=== PATIENT | female | born 1955 | race Caucasian/White ===

== ENCOUNTER → 2017-03-20 | Outpatient (CLI) | payer OTHER ==
[~2017-03-20] MED LIST: ENBREL25 MG/0.5 IM; FISHOIL PO; FOLIC ACID1 MG PO; I-CAPS AREDS S1 EACH PO; METHOTREXA1 GM/40 M2 IV; MINOCIN100 MG PO; PREDNISONE 5 MG5 M1 PO; TRAMADOL 50 MG50 MG PO; VITAMINC500 PO
== END ==
LOC: M.WC 01:51
DX: L89.893 Pressure ulcer of other site, stage 3 (principal); M06.9 Rheumatoid arthritis, unspecified; Z96.653 Presence of artificial knee joint, bilateral; Z96.641 Presence of right artificial hip joint

== ENCOUNTER → 2017-03-27 | Outpatient (CLI) | payer OTHER | LOC: M.WC 02:43 | DX: L89.893 Pressure ulcer of other site, stage 3 (principal); M06.9 Rheumatoid arthritis, unspecified; Z96.653 Presence of artificial knee joint, bilateral; Z96.641 Presence of right artificial hip joint ==

== ENCOUNTER → 2017-04-03 | Outpatient (CLI) | payer OTHER | LOC: M.WC 01:27 | DX: L89.893 Pressure ulcer of other site, stage 3 (principal); L03.116 Cellulitis of left lower limb; M06.9 Rheumatoid arthritis, unspecified ==

== ENCOUNTER → 2017-04-10 | Outpatient (CLI) | payer OTHER | LOC: M.WC 01:19 | DX: L89.893 Pressure ulcer of other site, stage 3 (principal); M06.9 Rheumatoid arthritis, unspecified ==

== ENCOUNTER → 2017-04-17 | Outpatient (CLI) | payer OTHER | LOC: M.WC 01:28 | DX: S81.812D Laceration without foreign body, left lower leg, subsequent encounter (principal); M06.9 Rheumatoid arthritis, unspecified; Z96.653 Presence of artificial knee joint, bilateral; Z96.641 Presence of right artificial hip joint; X58.XXXD Exposure to other specified factors, subsequent encounter ==

== ENCOUNTER → 2017-04-19 | Outpatient (CLI) | payer OTHER | LOC: M.WC 01:45 | DX: L89.893 Pressure ulcer of other site, stage 3 (principal); L03.116 Cellulitis of left lower limb; M06.9 Rheumatoid arthritis, unspecified ==

== ENCOUNTER → 2017-04-22 | Outpatient (CLI) | payer OTHER | LOC: M.WC 13:59 | DX: L89.893 Pressure ulcer of other site, stage 3 (principal); M06.9 Rheumatoid arthritis, unspecified; Z96.653 Presence of artificial knee joint, bilateral; Z96.641 Presence of right artificial hip joint ==

== ENCOUNTER → 2017-04-24 | Outpatient (CLI) | payer OTHER | LOC: M.WC 02:58 | DX: L89.893 Pressure ulcer of other site, stage 3 (principal); M06.9 Rheumatoid arthritis, unspecified ==

== ENCOUNTER → 2017-04-26 | Outpatient (CLI) | payer OTHER | LOC: M.WC 01:34 | DX: S81.812D Laceration without foreign body, left lower leg, subsequent encounter (principal); M06.9 Rheumatoid arthritis, unspecified; Z96.653 Presence of artificial knee joint, bilateral; Z96.641 Presence of right artificial hip joint; W45.8XXD Other foreign body or object entering through skin, subsequent encounter ==

== ENCOUNTER → 2017-04-29 | Outpatient (CLI) | payer OTHER | LOC: M.WC 00:54 | DX: S81.812D Laceration without foreign body, left lower leg, subsequent encounter (principal); M06.9 Rheumatoid arthritis, unspecified; Z96.653 Presence of artificial knee joint, bilateral; Z96.641 Presence of right artificial hip joint; X58.XXXD Exposure to other specified factors, subsequent encounter ==

== ENCOUNTER → 2017-05-01 | Outpatient (CLI) | payer OTHER | LOC: M.WC 01:46 | DX: L89.893 Pressure ulcer of other site, stage 3 (principal); M06.9 Rheumatoid arthritis, unspecified ==

== ENCOUNTER → 2017-05-08 | Outpatient (CLI) | payer OTHER | LOC: M.WC 01:41 | DX: L89.893 Pressure ulcer of other site, stage 3 (principal); M06.9 Rheumatoid arthritis, unspecified ==

== ENCOUNTER → 2017-05-15 | Outpatient (CLI) | payer OTHER | LOC: M.WC 03:31 | DX: L89.893 Pressure ulcer of other site, stage 3 (principal); M06.9 Rheumatoid arthritis, unspecified; Z96.653 Presence of artificial knee joint, bilateral; Z96.641 Presence of right artificial hip joint ==

== ENCOUNTER → 2017-05-22 | Outpatient (CLI) | payer OTHER | LOC: M.WC 04:50 | DX: S81.812D Laceration without foreign body, left lower leg, subsequent encounter (principal); L89.893 Pressure ulcer of other site, stage 3; M06.9 Rheumatoid arthritis, unspecified; X58.XXXD Exposure to other specified factors, subsequent encounter ==

== ENCOUNTER → 2017-05-29 | Outpatient (CLI) | payer OTHER | LOC: M.WC 01:58 | DX: L89.893 Pressure ulcer of other site, stage 3 (principal); L03.116 Cellulitis of left lower limb; M06.9 Rheumatoid arthritis, unspecified ==

== ENCOUNTER 2020-08-25 10:50 | Inpatient (IN) | payer OTHER ==
[~2020-08-25] VITALS: Ht 149.9 cm; Wt 51.3 kg
[2020-08-25 10:51] VITALS: BP 157/55
[2020-08-25] MEDS ORDERED: MULTIVITAMIN (11:00)
[2020-08-25 13:59] LABS: ABSOLUTE BASOPHILS 0.1 thou/uL (0.0-0.2); ABSOLUTE EOSINOPHILS 0.3 thou/uL (0.0-0.7); ABSOLUTE LYMPHOCYTES 1.3 thou/uL (0.8-5.3); ABSOLUTE MONOCYTES 0.4 thou/uL (0.0-1.2); ABSOLUTE NEUTROPHILS 1.7 thou/uL (1.6-8.1); BASOPHILS 1.6 %; EOSINOPHILS 7.4 %; HEMATOCRIT 37.3 % (37.0-47.0); HEMOGLOBIN 12.5 gm/dL (12.0-15.0); LYMPHOCYTES 35.2 %; MCH 27.6 pg (26.0-34.0); MCHC 33.6 g/dL (28.0-37.0); MCV 82.2 fL (80.0-100.0); MPV 8.2 fl. (7.2-11.1); NUCLEATED RBCS 0 /100WBC; PLATELET COUNT* 225 thou/uL (150-400); POLYS 44.8 %; RBC 4.54 mil/uL (4.20-5.00); RDW-CV 16.6 % (10.5-14.5); WBC 3.8 thou/uL (4.0-11.0)
[2020-08-25 14:01] LABS: CALCIUM 8.7 mg/dL (8.5-10.1); CREATININE 0.4 mg/dL (0.6-1.3); POTASSIUM 3.5 mmol/L (3.5-5.1)
[2020-08-25 14:15] LABS: URINE BILIRUBIN NEGATIVE (Negative); URINE BLOOD NEGATIVE (Negative); URINE CLARITY CLEAR; URINE COLOR YELLOW; URINE GLUCOSE-RANDOM NEGATIVE (Negative); URINE KETONES NEGATIVE (Negative); URINE LEUKOCYTES NEGATIVE (Negative); URINE NITRITE NEGATIVE (Negative); URINE PROTEIN NEGATIVE (Negative); URINE UROBILINOGEN 0.2 E.U./dl (0.2-1.0)
[2020-08-25 16:44] VITALS: BP 132/50
[2020-08-25 18:00] VITALS: BP 134/54
[2020-08-25 20:00] VITALS: BP 141/60
[2020-08-26 05:07] LABS: CALCIUM 8.6 mg/dL (8.5-10.1); CREATININE 0.6 mg/dL (0.6-1.3); POTASSIUM 3.6 mmol/L (3.5-5.1)
[2020-08-26 05:08] LABS: HEMATOCRIT 34.5 % (37.0-47.0); HEMOGLOBIN 11.8 gm/dL (12.0-15.0); MCHC 34.2 g/dL (28.0-37.0); MCV 81.9 fL (80.0-100.0); RBC 4.22 mil/uL (4.20-5.00); RDW-CV 16.5 % (10.5-14.5); WBC 3.5 thou/uL (4.0-11.0)
[2020-08-26 08:00] VITALS: BP 108/52
[2020-08-26 20:25] VITALS: BP 122/60
[2020-08-27 08:25] VITALS: BP 142/56
[2020-08-27 16:00] VITALS: BP 112/53
[2020-08-27 20:00] VITALS: BP 112/54
[2020-08-28 08:25] VITALS: BP 126/57
[2020-08-28] MEDS ORDERED: PREDNISONE 20 M20 MG PO (09:33)
[2020-08-28] MEDS ORDERED: IBUPROFEN 600600 M1 PO (09:33)
[2020-08-28 12:56] VITALS: BP 126/57
[2020-08-28 12:58] VITALS: BP 126/57
== END 2020-08-28 13:15 | disposition home or self-care (01) | DRG 554 ==
LOC: M.ERS 10:50 → M.TBA-ER 14:01 → M.ORTHSURG 14:01
PROVIDERS: Emergency Medicine Emergency Medical Services; Internal Medicine; ADMIT Internal Medicine; ATTEND Internal Medicine
DX: M16.12 Unilateral primary osteoarthritis, left hip (principal); D72.819 Decreased white blood cell count, unspecified; M06.9 Rheumatoid arthritis, unspecified; Z96.653 Presence of artificial knee joint, bilateral; Z20.822 Contact with and (suspected) exposure to COVID-19; Z96.641 Presence of right artificial hip joint; Z98.1 Arthrodesis status; Z98.891 History of uterine scar from previous surgery; Z79.899 Other long term (current) drug therapy; Z88.2 Allergy status to sulfonamides; Z88.5 Allergy status to narcotic agent